=== PATIENT | male | born 1940 | race Caucasian/White ===

== ENCOUNTER 2024-07-13 07:45 | Day surgery (SDC) | payer MEDICARE ==
[2024-07-13] MEDS: Sodium Chloride 0.9% 10 ML Syringe FLUSH PRN (08:09)
== END 2024-07-13 09:35 | disposition home or self-care (01) ==
LOC: JP.SDS 07:45
PROVIDERS: ATTEND Ophthalmology
DX: H25.11 Age-related nuclear cataract, right eye (principal)
CPT/HCPCS: 66984; J3490; V2632

== ENCOUNTER 2024-08-03 06:19 | Day surgery (SDC) | payer MEDICARE ==
[2024-08-03] MEDS: Sodium Chloride 0.9% 10 ML Syringe FLUSH PRN (07:00)
== END 2024-08-03 08:27 | disposition home or self-care (01) ==
LOC: JP.SDS 06:19
PROVIDERS: ATTEND Ophthalmology
DX: H25.12 Age-related nuclear cataract, left eye (principal); I25.10 Atherosclerotic heart disease of native coronary artery without angina pectoris; Z95.1 Presence of aortocoronary bypass graft
CPT/HCPCS: J3490; V2632